=== PATIENT | female | born 2000 | race Caucasian/White ===

== ENCOUNTER 2020-05-07 16:19 | Emergency (ER) | payer SELFPAY | END 2020-05-07 16:58 | disposition left against medical advice (07) | LOC: ED 16:19 | DX: Z53.21 Procedure and treatment not carried out due to patient leaving prior to being seen by health care provider (principal) ==

== ENCOUNTER 2020-07-19 00:56 | Emergency (ER) | payer MEDICAID ==
[~2020-07-19] VITALS: Ht 165.1 cm; Wt 61.2 kg
[2020-07-19 00:59] VITALS: Ht 165.1 cm; Wt 61.2 kg
[2020-07-19 02:41] VITALS: BP 105/53
== END 2020-07-19 02:41 | disposition home or self-care (01) ==
LOC: ED 00:56
DX: U07.1 COVID-19 (principal); R07.89 Other chest pain